=== PATIENT | male | born 1955 | race Caucasian/White ===

== ENCOUNTER 2018-08-06 09:30 | Outpatient (CLI) | payer BC, SELFPAY ==
[2018-08-06 11:20] LABS: HCT 43.8 % (40.0-50.0); HGB 14.3 g/dL (13.5-17.5); Mean Corp. HGB Concentration 32.6 g/dL (32.0-36.0); Mean Corpuscular Hemoglobin 29.9 pg (27.0-33.0); Mean Corpuscular Volume 91.6 fL (80-95); Mean Platelet Volume 9.8 fL (8.0-11.0); Platelet Count 218 x1000/uL (130-400); RBC 4.78 m/cumm (4.50-6.00); RBC Distribution Width 13.1 % (11.8-14.1); White Blood Cell Count 4.03 k/cumm (4.4-10.8)
[2018-08-06 11:59] LABS: Anion Gap 6.1 mmol/L (3-11); BUN 18 mg/dL (7-18); CO2 32.9 mmol/L (21.0-32.0); Calculated LDL 129; Chloride 106 mmol/L (98-107); Cholesterol 196 mg/dL (50-200); Glucose 99 mg/dL (70-100); HDL Cholesterol 59 mg/dL (40-60); Potassium 4.7 mmol/L (3.5-5.1); Sodium 145 mmol/L (136-145); Triglyceride 43 mg/dL (30-150)
[2018-08-09 10:50] LABS: PSA, Screening 1.3 ng/ml (0-4.5)
== END 2018-08-06 09:50 ==
PROVIDERS: PCP Family Medicine; Visit Provider Family Medicine
DX: Z00.00 Encounter for general adult medical examination without abnormal findings (principal); I10 Essential (primary) hypertension; Z12.5 Encounter for screening for malignant neoplasm of prostate
CPT/HCPCS: 36415; 80048; 80061; 83721; 84153; 85027

== ENCOUNTER 2019-11-19 13:03 | Outpatient (REF) | payer BC, SELFPAY ==
[2019-11-19 15:25] LABS: Anion Gap 4.9 mmol/L (3-11); BUN 18 mg/dL (7-18); CO2 30.1 mmol/L (21.0-32.0); CREATININE 1.12 mg/dL (0.70-1.30); Calcium 8.9 mg/dL (8.5-10.1); Chloride 105 mmol/L (98-107); Glucose 123 mg/dL (74-106); Potassium 4.5 mmol/L (3.5-5.1); Sodium 140 mmol/L (136-145)
== END 2019-11-19 13:23 ==
LOC: LBN 13:03
PROVIDERS: PCP Nurse Practitioner; Visit Provider Family Medicine
DX: G47.33 Obstructive sleep apnea (adult) (pediatric) (principal)
CPT/HCPCS: 80048

== ENCOUNTER 2019-11-21 18:07 | Outpatient (REF) | payer BC, SELFPAY ==
[2019-11-25 16:33] LABS: Misc Referral (VDH) See Comments
== END 2019-11-21 18:27 ==
LOC: LBN 18:07
PROVIDERS: PCP Nurse Practitioner; Visit Provider Nurse Practitioner Family
DX: R19.7 Diarrhea, unspecified (principal)
CPT/HCPCS: 87505; 87177

== ENCOUNTER 2019-12-11 18:00 | Emergency (ER) | payer BC, SELFPAY ==
--- NOTE | 2019-12-11 18:00 | DI.CT_ITS ---
EXAM: CT RENAL COLIC WO CLINICAL HISTORY: left flank pain TECHNIQUE: COMPARISON: No exams were available for comparison FINDINGS: CT examination of the abdomen and pelvis was performed without contrast administration.. Images obta ined through the lung bases are unremarkable. The liver appears normal with no evidence of a focal mass. Spleen is unremarkable in appearance.. Gallbladder and bile ducts are unremarkable. Pancreas is unremarkable in appearance. Adrenals appear normal bilaterally. Kidneys appear normal with no evidence of renal mass, hydronephro sis, or nephrolithiasis. The ureters are slightly prominent bilaterally. No ureteral calcification. Bladder has low volume u rine. Bladder wall appears thickened raising the possibility of chronic bladder outlet obstruction. There is some trabeculation of the urinary bladder wall.. Prostate is mildly enlarged.. There is no evidence of abdominal or pelvic adenopathy. Abdominal aorta is normal in diameter period . Appendix is normal. There is fat stranding adjacent to the descending sigmoid junction with mild ass ociated wall thickening of the colon. The findings are suggestive mild uncomplicated diverticulitis. Please correlate clinically. No significant abdominal wall hernia seen. Impression: No evidence of urinary tract obstruction. Probable chronic mild bladder outlet obstruction. Findings suggesting acute versus chronic sigmoid diverticulitis. RADIATION DOSE DELIVERED: 878.81mGy.cm Total DLP 878.81mGy.cm Total DLP DATA REPOSITORY: All CT scans at this facility are submitted to the National Radiology Data Registry (NRDR) Dose Index Registry (DIR) with the [employer] (A[employer]). RADIATION OPTIMIZATION: All CT scans at this facility use at least one of these dose optimization te chniques: automated exposure control; mA and/or kV adjustment per patient size (includes targeted exa ms where dose is matched to clinical indication); or iterative reconstruction.
[2019-12-11 18:07] VITALS: BP 155/99; PULSE 75; RESP 20; TEMP 37; O2SAT 99
--- NOTE | 2019-12-11 18:14 | ED.GENADUL_ITS ---
Discharge Plan Disposition Patient Disposition: HOME Condition: Stable Discharge Details Clinical Impression: Hydroureter, Diverticulitis Primary Care Provider: Calli Ordoñez ED Provider: Colin Amador Home Meds and New Rx's Prescriptions: New metronidazole [Flagyl] 500 mg tablet 500 mg PO Q8H Qty: 21 RF: 0 ciprofloxacin HCl 500 mg tablet 500 mg PO BID Qty: 14 RF: 0 Continued terbinafine HCl 1 % cream 1 applic TP BID Qty: 30 RF: 0 epinephrine [EpiPen 2-Vic] 0.3 MG/0.3 ML auto-injector 0.3 mg IM PRN Qty: 1 RF: 2 Discharge Instructions Instructions: Diverticulitis (ED) Additional Instructions: follow up with your primary care provider within 1-2 weeks and I also referred you to urology for the enlarged ureters seen on the cat scan if you feel more ill, have fevers or worsening pain return to the emergency department Referrals: Cristino Carbajal MD [ [facility] STAFF PHYSICIAN] - Medical Decision Making 64 yo male who denies chronic medical problems comes in with one day of pain locazlies to the left oblique region that is 2/10 and increases slightly with palpation no fevers, vomit, changes on bowel habits or urinary symptoms. NEver had pain like this before. No testicle tenderness or swelling. Has mild pain in left mid oblique no guarding or rebound and no cva tenderness. Could be muscle wall strain as was doing heavy lifting yesterday but given location will obtain ct to eval for possible kidney stone vs hernia, no pain out of proportion to suggest mesenteric ischemia labs unremarkable, ct shows mild diverticulitis and bilateral mild hydroureters and thick bladder wall, ua unremarkble. Urinating and emptying his bladder well. Will refer to urology as outpatient and start on cipro/flagyl. He has only mild pain and decines any pain medicine. will d/c home and return precautions given Differential Diagnosis Differential Diagnosis: kidney stone, hernia Imaging Data Radiologic Study: Attestation: I personally reviewed and interpreted this imaging study as follows: Imaging: CT Scan Radiologist's impression: IMPRESSION: Bilateral mild hydro ureters down to the pelvis. The bladder demonstrates thick wall. Prostate gland is enlarged. Does the patient have bladder outlet obstruction? In the left lower quadrant there is mild strandy inflammatory changes seen involving the junction of the descending colon and sigmoid colon. These changes are consistent with mild diverticulitis. No free fluid. Lab Data Lab results reviewed: Yes I reviewed the patient's lab results. HPI General Mode of arrival: ambulatory . Date/Time Provider Initiated Documentation: 12/11/19 18:01 . Limitations to Documentation: no limitations . Information obtained by: patient . History of Present Illness 64 year old M presents to the emergency department with the chief complaint of left oblique area pain, described as moderate, Patient started experiencing this day(s) (2) and it has been constant. No relieving factors improve symptom(s), No exacerbating factors reported . Patient notes no other symptoms.. Patient did receive the following treatments prior to arrival, none Related Data Home Medications Medication Instructions Recorded Confirmed epinephrine [EpiPen 2-Vic] 0.3 mg IM PRN #1 pack 07/09/17 12/11/19 terbinafine HCl 1 % topical cream 1 applic TP BID #30 gm 10/06/19 12/11/19 ciprofloxacin HCl 500 mg PO BID #14 tab 12/11/19 metronidazole [Flagyl] 500 mg PO Q8H #21 tab 12/11/19 Previous Rx's Medication Instructions Recorded epinephrine [EpiPen 2-Vic] 0.3 mg IM PRN #1 pack 07/09/17 terbinafine HCl 1 % topical cream 1 applic TP BID #30 gm 10/06/19 ciprofloxacin HCl 500 mg PO BID #14 tab 12/11/19 metronidazole [Flagyl] 500 mg PO Q8H #21 tab 12/11/19 Allergies Allergy/AdvReac Type Severity Reaction Status Date / Time bee venom protein (honey bee) Allergy Unknown Unverified 12/11/19 18:12 General Stated Complaint: Abd Prob DULCE: 3 Review of Systems All systems reviewed & are unremarkable except as noted in HPI and below Constitutional Constitutional: Denies chills, Denies fever(s) and Denies weakness ENT Ears, Nose, Mouth, and Throat: Denies change in voice Cardiovascular Cardiovascular: Denies chest pain and Denies dyspnea Respiratory Respiratory: Denies cough and Denies dyspnea Gastrointestinal Gastrointestinal: Denies nausea and Denies vomiting Genitourinary Genitourinary: Denies dysuria Musculoskeletal Musculoskeletal: Denies joint swelling Integumentary/Breasts Skin/Breast: Denies rash Neurologic Neurologic: Denies weakness [facility] Medical History Abdominal cramping Bursitis of right shoulder (08/16/15) Lateral epicondylitis of left elbow Left lumbar radiculopathy (05/04/15) Localized pruritus (07/09/17) hands and dorsum of feet Plantar fasciitis, bilateral (08/16/15) Pruritus ani Trigeminal neuralgia Trigger finger, right middle finger (12/21/14) Surgical History Status post vasectomy Vasectomy Family History Mother , 87 Pulmonary embolism Parkinsons Father , 99 Colon cancer Sister No problems noted. Brother Hyperlipidemia Maternal Grandfather TB (tuberculosis) Paternal Grandfather No problems noted. Maternal Grandmother No problems noted. Paternal Grandmother No problems noted. Sister No problems noted. Sister No problems noted. Brother Hypertension Son No problems noted. Daughter No problems noted. Daughter No problems noted. Social History Smoking/Tobacco Use Status: Never Alcohol Intake: current Alcohol Intake frequency: a few times a month Alcohol type: beer Drug use: Never Substance use type: does not use Caregiver/Support person: Yes Household members: spouse Housing: house Communication Needs: None Do you need help understanding health information?: Never Pets and animals: Yes Pets and animals: dog(s) Sexually active: Yes Do you think of yourself as: straight/heterosexual Current gender identity: male What is your relationship status?: How often do you talk on the phone with friends or family?: twice per week How often do you get together with friends or relatives?: once per week How often do you attend synagogue or taoist services?: 1-3 times per year Do you belong to any clubs or organized social groups?: no Panel score (0-1 are the most socially isolated patients): 2 What type of physical activity do you participate in: walking Duration: 60-90 minutes/day Frequency: 5-6 times per week Veronika/Catholic: No preference Special veronika needs: No Seatbelt use: always Helmet use: Yes Helmet use: always Drive intox or ride w/intox pile driver: No Do you feel safe at home: Yes Do you feel safe in your relationship?: Yes Exam Const General: no acute distress Orientation: alert HENMT Head: normal to inspection Ears: external ears normal General nose exam: external nose normal Mouth: moist mucous membranes Eyes General: appearance normal, both eyes and all related structures Neck Neck: normal visual inspection Resp Effort & Inspection: normal respiratory effort and able to speak in complete sentences Cardio Rate: regular rate GI Palpation: soft and not rigid Skin General skin exam: no rashes or lesions noted Neuro General: patient alert and patient oriented x3 Extrem General: normal to inspection Psych Mental Status: mental status grossly normal Course Vital Signs Vital signs: Vital Signs Temperature 37.0 C 12/11/19 18:07 Pulse 75 12/11/19 18:07 Respiratory Rate 20 12/11/19 18:07 Blood Pressure 155/99 H 12/11/19 18:07 Pulse Oximetry 99 12/11/19 18:07 Temperature 37.0 C 12/11/19 18:07 Temperature Source Skin 12/11/19 18:07 Pulse 75 12/11/19 18:07 Respiratory Rate 20 12/11/19 18:07 Respiratory Effort Non-Labored 12/11/19 18:12 Blood Pressure 155/99 H 12/11/19 18:07 Blood Pressure Position Sitting 12/11/19 18:07 Pulse Oximetry 99 12/11/19 18:07 Oxygen Delivery Method Room Air 12/11/19 18:07 Oxygen Flow Rate 0 12/11/19 18:07 Pain Level 2 12/11/19 18:07
[2019-12-11 18:20] LABS: Bilirubin Negative (Negative); Blood Negative (Negative); Clarity Clear (Clear); Glucose Negative (Negative); Ketones Negative (Negative); Leukocyte Esterase Negative (Negative); Nitrite Negative (Negative); Specific Gravity 1.025 (1.005-1.025); Urobilinogen 0.2 EU/dL (Up TO 0.2)
[2019-12-11 18:23] LABS: Abs Immature Grans 0.03 10^3/uL (0.0-0.06); Absolute Basophil Count 0.03 10^3/uL (0.0-0.2); Absolute Eosinophil Count 0.05 10^3/uL (0.0-0.7); Absolute Lymphocyte Count 1.04 10^3/uL (1.2-3.4); Absolute Monocyte Count 0.71 10^3/uL (0.1-0.8); Absolute Neutrophil Count 4.02 10^3/uL (1.2-6.7); Basophils % 0.5; Eosinophils % 0.9; HCT 47.3 % (40.0-50.0); HGB 15.5 g/dL (13.5-17.5); Immature Grans % 0.5; Lymphocytes % 17.7; MCH 29.9 pg (27.0-33.0); MCHC 32.8 % (32.0-36.0); MCV 91.3 fL (80-95); MPV 9.2 fL (8.0-11.0); Monocytes % 12.1; Neutrophils % 68.3; Nucleated RBC 0 %; Platelet Count 192 10^3/uL (130-400); RBC 5.18 10^6/uL (4.36-5.78); RDW 12.1 % (11.8-14.1); RDW-SD 40.5 fL; WBC 5.88 10^3/uL (4.4-10.8)
[2019-12-11 18:38] LABS: Bilirubin, Direct 0.12 mg/dL (0.00-0.20)
[2019-12-11 18:42] LABS: ALT 25 U/L (16-63); AST 20 U/L (15-37); Albumin 4.4 g/dL (3.4-5.0); Alkaline Phosphatase 85 U/L (46-116); Anion Gap 4.8 mmol/L (3-11); BUN 17 mg/dL (7-18); Bilirubin, Total 0.5 mg/dL (0.2-1.0); CO2 31.2 mmol/L (21.0-32.0); CREATININE 1.11 mg/dL (0.70-1.30); Calcium 9.5 mg/dL (8.5-10.1); Chloride 103 mmol/L (98-107); Glucose 91 mg/dL (74-106); Lipase 134 U/L (73-393); Magnesium 2.3 mg/dL (1.8-2.4); Potassium 4.1 mmol/L (3.5-5.1); Sodium 139 mmol/L (136-145); Total Protein 8.4 g/dL (6.4-8.2)
--- NOTE | 2019-12-11 18:50 | DI.VRAD_ITS ---
PROCEDURE INFORMATION: Exam: CT Abdomen And Pelvis Without Contrast Exam date and time: 12/11/2019 6:32 PM Age: 64 years old Clinical indication: Abdominal pain; Prior surgery; Surgery date: 6+ months; Surgery type: Vasectomy; Patient HX: Left sided abdominal /flank pain TECHNIQUE: Imaging protocol: Computed tomography of the abdomen and pelvis without contrast. Radiation optimization: All CT scans at this facility use at least one of these dose optimization techniques: automated exposure control; mA and/or kV adjustment per patient size (includes targeted exams where dose is matched to clinical indication); or iterative reconstruction. COMPARISON: No relevant prior studies available. FINDINGS: Lungs: The lung bases demonstrate some subsegmental atelectasis. Liver: Normal. No mass. Gallbladder and bile ducts: Gallbladder is contracted. Pancreas: Normal. No ductal dilation. Spleen: Normal. No splenomegaly. Adrenals: Normal. No mass. Kidneys and ureters: The demonstrate no hydronephrosis however there is bilateral hydroureter proximally both ureters are followed down to the bladder. Stomach and bowel: Large amount of stool is seen throughout the entire colon from the cecum to the rectum. There is a small area of descending colon at its junction with the sigmoid colon which has mild strandy inflammatory changes around this loop of bowel with scattered diverticula seen. Appendix: No evidence of appendicitis. Intraperitoneal space: Unremarkable. No free air. No significant fluid collection. Vasculature: Unremarkable. No abdominal aortic aneurysm. Lymph nodes: Unremarkable. No enlarged lymph nodes. Urinary bladder: The bladder demonstrates some bladder wall thickening and a cystocele posteriorly on the left. Reproductive: In the pelvis the prostate is enlarged. Bones/joints: Sagittal images demonstrates mild discogenic degenerative changes in the lower lumbar spine. Soft tissues: Patient has a small umbilical hernia containing mesenteric fat at this time. IMPRESSION: Bilateral mild hydro ureters down to the pelvis. The bladder demonstrates thick wall. Prostate gland is enlarged. Does the patient have bladder outlet obstruction? In the left lower quadrant there is mild strandy inflammatory changes seen involving the junction of the descending colon and sigmoid colon. These changes are consistent with mild diverticulitis. No free fluid. Dictated and Authenticated by: Damaris Hidalgo MD. Ordering:MARIO Shaw MD
[2019-12-11 18:52] LABS: PTT Activated 25.6 sec (21.0-31.4); Prothrombin Time 9.8 sec (9.3-11.0)
[2019-12-11 19:28] VITALS: BP 134/72; PULSE 70; RESP 18; TEMP 37.1; O2SAT 99
--- NOTE | 2019-12-11 19:33 | NUR.NOTE ---
Nursing Note: referal sent to urology 12/11/19
[2019-12-11] MEDS: metroNIDAZOLE 500 MG TAB PO (19:44)
[2019-12-11] MEDS: Ciprofloxacin 500 MG TAB PO (19:44)
== END 2019-12-11 19:45 | disposition home or self-care (01) ==
PROVIDERS: Emergency Provider Emergency Medicine; PCP Nurse Practitioner
DX: N13.4 Hydroureter (principal); K57.32 Diverticulitis of large intestine without perforation or abscess without bleeding
CPT/HCPCS: 80053; 83690; 99284; 74176; 81003; 82248; 83735; 85025; 85610; 85730

== ENCOUNTER 2020-06-10 08:37 | Outpatient (REF) | payer BC, SELFPAY ==
[2020-06-11 11:46] LABS: Campylobacter PCR Negative (Negative); Salmonella PCR Negative (Negative); Shiga Toxin PCR Negative (Negative); Shigella/Enteroinvasive Ecoli Negative (Negative)
== END 2020-06-10 08:38 | disposition home or self-care (01) ==
LOC: LBN 08:37
PROVIDERS: PCP Nurse Practitioner; Visit Provider Nurse Practitioner Family
DX: R19.7 Diarrhea, unspecified (principal)
CPT/HCPCS: 87505

== ENCOUNTER 2021-08-08 10:32 | Outpatient (CLI) | payer BC, SELFPAY ==
[2021-08-08 10:53] LABS: Potassium 4.1 mmol/L (3.5-5.1)
== END 2021-08-08 10:33 | disposition home or self-care (01) ==
LOC: LBO 10:33
PROVIDERS: PCP Nurse Practitioner; Visit Provider Nurse Practitioner
DX: I10 Essential (primary) hypertension (principal)
CPT/HCPCS: 36415; 82565; 84132

== ENCOUNTER 2022-11-19 14:11 | Outpatient (REF) | payer BC, SELFPAY ==
[2022-11-19 15:35] LABS: C Diff PCR Negative (Negative)
[2022-11-20 10:57] LABS: Campylobacter PCR Negative (Negative); Salmonella PCR Negative (Negative); Shiga Toxin PCR Negative (Negative); Shigella/Enteroinvasive Ecoli Negative (Negative)
== END 2022-11-19 14:12 | disposition home or self-care (01) ==
LOC: LBN 14:11
PROVIDERS: PCP Nurse Practitioner Family; Visit Provider Nurse Practitioner
DX: R19.7 Diarrhea, unspecified (principal)
CPT/HCPCS: 87329; 87493; 87505

== ENCOUNTER 2022-12-20 10:10 | Emergency (ER) | payer BC, SELFPAY ==
[2022-12-20] VITALS (22 sets, daily range): BP systolic 118–169; BP diastolic 71–99; PULSE 68–147; RESP 5–24; TEMP 36.6; O2SAT 95–97
--- NOTE | 2022-12-20 10:15 | RT.EKG_ITS ---
APPROVED REPORT Exam: Resting ECG Reason for Exam: Tachycardia Patient Location: E HR:143 bpm ECG Measurements Heart Rate 143 AXIS NH 108 P 240 QRSd 160 QRS -15 QT 380 T 268 QTc 586 Conclusion Sinus tachycardia.. IVCD, consider RBBB...QRSd>120mS, terminal axis(90,270) Abnormal T, consider ischemia, inferior leads...T <-0.20mV, II III aVF
--- NOTE | 2022-12-20 10:30 | RT.EKG_ITS ---
APPROVED REPORT Exam: Resting ECG Reason for Exam: tachycardia Patient Location: E HR:80 bpm ECG Measurements Heart Rate 80 AXIS LA 160 P 31 QRSd 91 QRS 12 QT 371 T 57 QTc 429 Conclusion Sinus rhythm...normal P axis, V-rate 60- [address] segment or T wave abnormalities to suggest occlusive [place]
--- NOTE | 2022-12-20 10:36 | NUR.NOTE ---
Accessed Pt chart in [facility] to obtain an older EKG to compare to the EKG now.
[2022-12-20 10:38] LABS: Abs Immature Grans 0.02 10^3/uL (0.0-0.06); Absolute Basophil Count 0.02 10^3/uL (0.0-0.2); Absolute Eosinophil Count 0.03 10^3/uL (0.0-0.7); Absolute Lymphocyte Count 0.76 10^3/uL (1.2-3.4); Absolute Monocyte Count 0.55 10^3/uL (0.1-0.8); Absolute Neutrophil Count 2.82 10^3/uL (1.2-6.7); Basophils % 0.5; Eosinophils % 0.7; HCT 46.1 % (40.0-50.0); HGB 15.3 g/dL (13.5-17.5); Immature Grans % 0.5; Lymphocytes % 18.1; MCH 30.2 pg (27.0-33.0); MCHC 33.2 % (32.0-36.0); MCV 91 fL (80-95); MPV 9.2 fL (8.0-11.0); Monocytes % 13.1; Neutrophils % 67.1; Platelet Count 191 10^3/uL (130-400); RBC 5.06 10^6/uL (4.36-5.78); RDW-SD 40.1 fL
[2022-12-20 11:03] LABS: ALT 30 U/L (16-63); AST 17 U/L (15-37); Albumin 3.8 g/dL (3.4-5.0); Alkaline Phosphatase 59 U/L (46-116); Anion Gap 6.9 mmol/L (3-11); BUN 23 mg/dL (7-18); Bilirubin, Total 0.4 mg/dL (0.2-1.0); CO2 30.1 mmol/L (21.0-32.0); Calcium 9.7 mg/dL (8.5-10.1); Chloride 103 mmol/L (98-107); Estimated GFR 81.47 (mL/min/1.73m2); Glucose 100 mg/dL (74-106); Potassium 4.3 mmol/L (3.5-5.1); Sodium 140 mmol/L (136-145); TSH (W/Ref FT4) 3.11 uIU/mL (0.36-3.74); Total Protein 8.1 g/dL (6.4-8.2); Troponin I < 50 ng/L (<or=60)
--- NOTE | 2022-12-20 11:45 | W.ED.GENAD ---
Discharge Plan Disposition Patient Disposition: Home Discharge Details Clinical Impression: Atrial tachycardia Primary Care Provider: Jose Wayne ED Provider: Osiel Lee Home Meds and New Rx's Prescriptions: New metoprolol succinate 25 mg tablet extended release 24 hr 12.5 mg PO DAILY Qty: 30 1RF Continued rosuvastatin 5 mg tablet 5 mg PO DAILY aspirin 81 mg tablet,delayed release (DR/EC) 81 mg PO DAILY cholestyramine (with sugar) 4 gram powder 1 pwd PO QACHS Qty: 378 0RF Rx Instructions: no meds 1 hr before/4-6 hr after dose loperamide [Imodium A-D] 2 mg tablet 2 mg PO Q4H PRN (Reason: loose stool) Qty: 60 0RF Rx Instructions: administer after each loose stool until symptoms controlled; do not exceed 8 mg per 24 hrs epinephrine [EpiPen 2-Vic] 0.3 MG/0.3 ML auto-injector 0.3 mg IM PRN Qty: 1 2RF Rx Instructions: May fill for generic budesonide 9 mg tablet,delayed and ext.release 9 mg PO DAILY Qty: 60 0RF Rx Instructions: 1 tab po qd x 8 weeks budesonide 6 mg capsule, extended release 6 mg PO DAILY Qty: 90 0RF lisinopril 5 mg tablet 5 mg PO DAILY Qty: 90 1RF Discharge Instructions Instructions: Atrial Tachycardia (ED), Valsalva Maneuver (ED) Additional Instructions: Please continue to monitor your symptoms and return to the emergency department for any new or significant worsening of your condition. You may perform the Valsalva/modified Valsalva maneuvers along with cold rags on your face to see if this stops any reoccurrence of your symptoms. Take the new medication daily and monitor your blood pressure and heart rate while on this medication. Please ensure that your systolic blood pressure is above 100 and your heart rate is above 60 before taking this new medication. Referrals: [facility] [Outside] (Please call your take off worker and follow-up as discussed) Medical Decision Making Patient presenting to the emergency department for chief complaint of tachycardia. Patient reports just prior to arrival he was putting some stuff away in the kitchen and bent over when he stood up he felt his heart rate rapidly increase and he got a little bit of lightheadedness. Patient denies any pain or discomfort, states that this is the third time that is happened within the last year and has seen [facility] cardiology for this. Patient does have significant cardiac history of pericarditis approximately 3 years ago after having COVID in which he was prescribed atorvastatin aspirin and lisinopril. He also was supposed to be taking colchicine but he had stopped that for a while and did restart it the last couple days. Patient denies any other significant cardiac history. Physical exam is positive for significant tachycardia but patient is ANO x3, no altered mental status, stable and even slightly elevated blood pressure and all other vitals are within normal range including patient being afebrile. Stat EKG was ordered along with cardiac standard blood work. Please see physician interpretation for full interpretation of EKG but upon my review patient appears to be in a sinus versus atrial tachycardia with rate of 143 some findings to suggest possible demand ischemia but difficult to fully determine due to rate. We will continue to monitor. Patient does state the other 2 episodes self resolved so we did attempt modified Valsalva maneuver. We perform this twice with little changes noted at that time. After leaving the room for approximately 10 minutes was monitoring patient and he self converted back to sinus rhythm which we performed another EKG. Please see physician interpretation of that EKG as well but patient now appears to be in sinus rhythm, rate of 80, no findings to suggest acute STEMI and otherwise appears to be a normal rhythm. Labs reviewed and CBC CMP are noncontributory, nondetected troponin, TSH within normal range. I did speak with [facility] cardiology on-call who recommended patient be placed on a low-dose beta-feroz and to follow-up with their clinic. Discussed these recommendations with patient and significant other who were in agreement. They were encouraged to perform Valsalva maneuvers at home if the episodes occur again but if they are unsuccessful to come immediately to the emergency department. Patient put on extended release metoprolol just at 12.5 mg given his blood pressure of 120s over 70s. After discussion of diagnosis and plan of care patient has no further needs, questions, or concerns and states clear understanding to return to the emergency department for any worsening symptoms. This documentation was generated using [employer] system, please disregard any oddities of phrase or misspellings. Lab Data Lab results reviewed: Yes I reviewed the patient's lab results. HPI General Mode of arrival: ambulatory. Date/Time Provider Initiated Documentation: 12/20/22 10:15. Limitations to Documentation: no limitations. Information obtained by: patient, family and RN notes reviewed. History of Present Illness 67 year old M presents to the emergency department with the chief complaint of Tachycardia, described as moderate, severe and similar to prior episodes, Patient started experiencing this minute(s) (40) and it has been constant. No relieving factors improve symptom(s), No exacerbating factors reported . Patient notes no other symptoms.. Patient did receive the following treatments prior to arrival, none Related Data Home Medications Medication Instructions Recorded Confirmed epinephrine 0.3 mg/0.3 mL 0.3 mg (0.3 mL) IM PRN ##1 07/09/17 06/13/22 injection, auto-injector (EpiPen 2-Vic) loperamide 2 mg tablet (Imodium 2 mg PO Q4H PRN loose stool #60 06/04/20 06/13/22 A-D) tabs rosuvastatin 5 mg tablet 5 mg PO DAILY 01/28/22 06/13/22 aspirin 81 mg tablet,delayed 81 mg PO DAILY 06/13/22 release cholestyramine (with sugar) 4 gram 1 pwd PO QACHS #378 grams 06/13/22 06/13/22 oral powder budesonide 9 mg tablet,delayed and 9 mg PO DAILY #60 tabs 06/25/22 extended release budesonide 6 mg capsule,extended 6 mg PO DAILY #90 caps 08/29/22 release lisinopril 5 mg tablet 5 mg PO DAILY #90 tabs 08/29/22 metoprolol succinate 25 mg 12.5 mg (1/2 x 25 mg) PO DAILY #30 12/20/22 tablet,extended release 24 hr tabs Previous Rx's Medication Instructions Recorded epinephrine 0.3 mg/0.3 mL 0.3 mg (0.3 mL) IM PRN ##1 07/09/17 injection, auto-injector (EpiPen 2-Vic) loperamide 2 mg tablet (Imodium 2 mg PO Q4H PRN loose stool #60 06/04/20 A-D) tabs cholestyramine (with sugar) 4 gram 1 pwd PO QACHS #378 grams 06/13/22 oral powder budesonide 9 mg tablet,delayed and 9 mg PO DAILY #60 tabs 06/25/22 extended release budesonide 6 mg capsule,extended 6 mg PO DAILY #90 caps 08/29/22 release lisinopril 5 mg tablet 5 mg PO DAILY #90 tabs 08/29/22 metoprolol succinate 25 mg 12.5 mg (1/2 x 25 mg) PO DAILY #30 12/20/22 tablet,extended release 24 hr tabs Allergies Allergy/AdvReac Type Severity Reaction Status Date / Time bee venom protein (honey bee) Allergy Unknown 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 06/13/22 09:36 lisinopril AdvReac Intermediate Other (See Uncoded 06/13/22 09:43 Comment) General Stated Complaint: Palpitatns DULCE: 3 Review of Systems Constitutional Constitutional: Denies chills, Denies fever(s) and Denies headache(s) ENT Ears, Nose, Mouth, and Throat: Denies dizziness and Denies headache(s) Cardiovascular Cardiovascular: Reports as per HPI, Denies chest pain, Reports rapid heart rate, Reports lightheadedness, Reports palpitations and Denies dyspnea Respiratory Respiratory: Denies cough and Denies dyspnea Neurologic Neurologic: Denies dizziness and Denies headache(s) Endocrine Endocrine: Reports palpitations PFSH All Active Problems Atrial tachycardia (Acute) Lesion of skin of nose (Acute) left side Hypertension (Chronic) Hydroureter (Acute) Diarrhea (Acute) 07/2020- microscopic colitis- seeing [facility] Neck strain (Chronic) stretching helps Obstructive sleep apnea syndrome (Chronic 07/30/16) Medical History COVID-19 06/26/21 Sensation of foreign body in throat Elevated TSH Normal T4 Lateral epicondylitis of left elbow Abdominal cramping Bursitis of right shoulder (08/16/15) Left lumbar radiculopathy (05/04/15) Lichen simplex chronicus Localized pruritus (07/09/17) hands and dorsum of feet Plantar fasciitis, bilateral (08/16/15) Pruritus ani Trigeminal neuralgia Trigger finger, right middle finger (12/21/14) Surgical History Status post vasectomy Vasectomy Family History Mother , 87 Pulmonary embolism Parkinsons Father , 99 Colon cancer Sister No problems noted. Brother Hyperlipidemia Maternal Grandfather TB (tuberculosis) Paternal Grandfather No problems noted. Maternal Grandmother No problems noted. Paternal Grandmother No problems noted. Sister No problems noted. Sister No problems noted. Brother Hypertension Son No problems noted. Daughter No problems noted. Daughter No problems noted. Social History Smoking/Tobacco Use Status: Never Second Hand Exposure: No Smoking risk assessment performed?: Yes Alcohol Intake: current Alcohol Intake frequency: a few times a month Alcohol type: beer Drug use: Never Substance use type: does not use Caregiver/Support person: Yes Household members: spouse Housing: house Communication Needs: None Do you need help understanding health information?: Never Pets and animals: Yes Pets and animals: dog(s) Sexually active: Yes Do you think of yourself as: straight/heterosexual Current gender identity: male What is your relationship status?: How often do you talk on the phone with friends or family?: twice per week How often do you get together with friends or relatives?: once per week How often do you attend buddhism or latter-day services?: 1-3 times per year Do you belong to any clubs or organized social groups?: no Panel score (0-1 are the most socially isolated patients): 2 What type of physical activity do you participate in: walking Duration: 60-90 minutes/day Frequency: 5-6 times per week Veronika/Christian: No preference Special veronika needs: No Seatbelt use: always Helmet use: Yes Helmet use: always Drive intox or ride w/intox chuck wagon driver: No Do you feel safe at home: Yes Do you feel safe in your relationship?: Yes Exam Const General: cooperative, healthy appearing, comfortable, no acute distress, not diaphoretic and not ill appearing Nutritional Appearance: average body habitus Orientation: alert, awake and oriented x3 Limitations: mental status not altered Neck Neck: normal visual inspection, full ROM, trachea midline, supple and no anterior neck swelling Carotids: normal carotid upstroke and no bruits Chest Chest: normal inspection of the chest Resp Effort & Inspection: normal respiratory effort and able to speak in complete sentences Auscultation: clear to auscultation bilaterally Cardio Jugular venous pressure: no JVD Palpation: normal PMI Rate: tachycardic Rhythm: regular rhythm Heart Sounds: S1 normal and S2 normal Pulses: radial pulses present bilaterally 2+ and dorsalis pedis present GI Inspection: normal to inspection Palpation: soft, no aortic enlargement, no pulsatile masses and nontender Auscultation: normal bowel sounds Skin General skin exam: no rashes or lesions noted Neuro General: patient alert, patient awake, patient oriented x3, tone normal and moves all extremities Course Vital Signs Vital signs: Vital Signs Temperature 36.6 C 12/20/22 10:18 Pulse 145 H 12/20/22 10:18 Blood Pressure 169/90 H 12/20/22 10:18 Pulse Oximetry 97 12/20/22 10:18 Temperature 36.6 C 12/20/22 10:18 Temperature Source Oral 12/20/22 10:18 Pulse 140 H 12/20/22 10:30 Pulse 147 H 12/20/22 10:40 Respiratory Rate 20 12/20/22 10:40 Respiratory Effort Normal 12/20/22 10:23 Blood Pressure 139/99 H 12/20/22 10:30 Blood Pressure Mean 112 12/20/22 10:30 Blood Pressure Position Sitting 12/20/22 10:18 Pulse Oximetry 96 12/20/22 10:40 Oxygen Delivery Method Room Air 12/20/22 10:18 Oxygen Flow Rate 0 12/20/22 10:18 Pain Level 0 12/20/22 10:18 Lab/Test Results Lab/Test Results: Laboratory Tests Range/Units 12/20/22 10:23 WBC (4.4-10.8) 10^3/uL 4.20 L RBC (4.36-5.78) 10^6/uL 5.06 Hgb (13.5-17.5) g/dL 15.3 Hct (40.0-50.0) % 46.1 MCV (80-95) fL 91 MCH (27.0-33.0) pg 30.2 MCHC (32.0-36.0) % 33.2 RDW (11.8-14.1) % 12.0 Plt Count (130-400) 10^3/uL 191 MPV (8.0-11.0) fL 9.2 Immature Gran % 0.5 Neutrophils % 67.1 Lymphocytes % 18.1 Monocytes % 13.1 Eosinophils % 0.7 Basophils % 0.5 Nucleated RBC % (0.0-0.3) % 0.0 Absolute Neutrophils (1.2-6.7) 10^3/uL 2.82 Absolute Lymphocytes (1.2-3.4) 10^3/uL 0.76 L Absolute Monocytes (0.1-0.8) 10^3/uL 0.55 Absolute Eosinophils (0.0-0.7) 10^3/uL 0.03 Absolute Basophils (0.0-0.2) 10^3/uL 0.02 Sodium (136-145) mmol/L 140 Potassium (3.5-5.1) mmol/L 4.3 Chloride (98-107) mmol/L 103 Carbon Dioxide (21.0-32.0) mmol/L 30.1 Anion Gap (3-11) mmol/L 6.9 BUN (7-18) mg/dL 23 H Creatinine (0.70-1.30) mg/dL 1.0 Est GFR (CKD-EPI 2020) (mL/min/1.73m2) 81.47 Glucose (74-106) mg/dL 100 Calcium (8.5-10.1) mg/dL 9.7 Magnesium (1.8-2.4) mg/dL 2.0 Total Bilirubin (0.2-1.0) mg/dL 0.4 AST (15-37) U/L 17 ALT (16-63) U/L 30 Alkaline Phosphatase (46-116) U/L 59 Troponin I (<or=60) ng/L < 50 Total Protein (6.4-8.2) g/dL 8.1 Albumin (3.4-5.0) g/dL 3.8 TSH (0.36-3.74) uIU/mL 3.11 Critical Care Time Critical Care Time Critical Care Time: Yes Total Critical Care Time: 30 Attestation: Due to SVT/atrial tachycardia with high probability of imminent or life threatening deterioration in the patient?s condition without intervention and treatment. Time spent documenting, reviewing labs and radiographs, monitoring titration/ Vital signs, and speaking with [facility] take off worker.
[2022-12-20] MEDS: Metoprolol CR 25 MG TABCR 12.5 MG PO (12:23)
== END 2022-12-20 12:31 | disposition home or self-care (01) ==
PROVIDERS: Emergency Provider Nurse Practitioner Family; PCP Nurse Practitioner Family
DX: I47.11 Inappropriate sinus tachycardia, so stated (principal)
CPT/HCPCS: 80053; 93005; 99291; 83735; 84443; 84484; 85025; 93010

== ENCOUNTER 2022-12-29 11:02 | Emergency (ER) | payer BC, SELFPAY ==
--- NOTE | 2022-12-29 10:45 | RT.EKG_ITS ---
APPROVED REPORT Exam: Resting ECG Reason for Exam: PALPITATIONS, SVT Patient Location: E HR:85 bpm ECG Measurements Heart Rate 85 AXIS NJ 156 P 40 QRSd 98 QRS 16 QT 354 T 64 QTc 422 Conclusion Sinus rhythm..V-rate 60- [address]. [address] segment or T wave abnormalities to suggest occlusive GA
[2022-12-29 11:04] VITALS: BP 139/83; PULSE 88; RESP 18; O2SAT 98
--- NOTE | 2022-12-29 11:12 | W.ED.GENAD ---
Discharge Plan Disposition Patient Disposition: Home Condition: Good Discharge Details Clinical Impression: Tachycardia Primary Care Provider: Jose Wayne ED Provider: Karin Mccartney Home Meds and New Rx's Prescriptions: New metoprolol succinate 25 mg tablet extended release 24 hr 25 mg PO DAILY Qty: 60 0RF Continued rosuvastatin 5 mg tablet 5 mg PO DAILY aspirin 81 mg tablet,delayed release (DR/EC) 81 mg PO DAILY loperamide [Imodium A-D] 2 mg tablet 2 mg PO Q4H PRN (Reason: loose stool) Qty: 60 0RF Rx Instructions: administer after each loose stool until symptoms controlled; do not exceed 8 mg per 24 hrs epinephrine [EpiPen 2-Vic] 0.3 MG/0.3 ML auto-injector 0.3 mg IM PRN Qty: 1 2RF Rx Instructions: May fill for generic budesonide 9 mg tablet,delayed and ext.release 9 mg PO DAILY Qty: 60 0RF Rx Instructions: 1 tab po qd x 8 weeks budesonide 6 mg capsule, extended release 6 mg PO DAILY Qty: 90 0RF lisinopril 5 mg tablet 5 mg PO DAILY Qty: 90 1RF Discontinued metoprolol succinate 25 mg tablet extended release 24 hr 12.5 mg PO DAILY Qty: 30 1RF Discharge Instructions Instructions: Valsalva Maneuver (ED), Tachycardia (ED) Additional Instructions: [facility] cardiology will try to move up your appointment. In the meantime, they would like you to increase your metoprolol (start by taking the full 12.5 you were prescribed) and to follow up with your PCP until you are able to see them. Please call your primary care doctor tomorrow to schedule an appointment to see them this week. Return to the emergency department for new or worsening symptoms including if your chest pressure returns, your heart is beating very fast, you feel like you are going to pass out, or if you have any other concerns. Referrals: Jose Wayne, SALES TECHNICIAN [Primary Care Provider] - Medical Decision Making 67yo M with HTN, prior episodes of transient tachycardia, presenting via EMS for tachycardia. History from patient, EMS, and [facility] record review. Recurrent episodes of chest pressure and tachycardia, today lasted > 40 minutes. EMS was called, they report regular narrow complex tachycardia with rate in 160's, normotensive, he was given 6mg of adenosine and converted into sinus rhythm with rate in 80's. Chest pressure resolved after he converted. Was started on metoprolol 12.5mg, missed his dose yesterday. Scheduled to see [facility] in February. Vital signs reassuring on arrival, HR in 80's, normotensive, no chest discomfort. Well appearing with a normal physical exam. EKG NSR, rate in 80's, appropriate intervals, no ST segment or T wave abnormalities to suggest occlusive SC. Labs reviewed as below, CBC & CMP reassuring, troponin negative x 2, TSH elevated with normal T4, dimer elevated. CT for PE independently reviewed, no large pulmonary embolism on my view, agree with radiology read below. Patient advised of incidental pericardial effusion. Discussed with Dr. Leal [facility] cardiology who advised increasing metoprolol to 25mg daily, PCP followup, will try to expedite their seeing the patient sooner. On reassessment he remains well appearing with reassuring vital signs, no further tachycardia or chest discomfort. States he has actually been taking 1/4 tab of his metop (so 6.25mg); advised increasing to initially prescribed 12.5 and following up with his PCP for possible increase to 25mg. Discharged home; discharge instructions including return precautions were reviewed with patient who verbalized understanding. All questions were answered and they are in full agreement with the plan. Medical Records Medical records reviewed: Yes I reviewed the patient's medical records. Imaging Data Radiologic Study: Imaging: CT Scan Radiologist's impression: IMPRESSION: No evidence of pulmonary embolism. A tiny pericardial effusion. Lab Data Lab results reviewed: Yes I reviewed the patient's lab results. Labs: Laboratory Tests Range/Units 12/29/22 12/29/22 12/29/22 11:13 11:13 11:13 WBC (4.4-10.8) 10^3/uL 4.74 RBC (4.36-5.78) 10^6/uL 4.85 Hgb (13.5-17.5) g/dL 14.6 Hct (40.0-50.0) % 43.7 MCV (80-95) fL 90 MCH (27.0-33.0) pg 30.1 MCHC (32.0-36.0) % 33.4 RDW (11.8-14.1) % 11.5 L Plt Count (130-400) 10^3/uL 226 MPV (8.0-11.0) fL 8.5 Immature Gran % 0.6 Neutrophils % 74.6 Lymphocytes % 13.7 Monocytes % 10.1 Eosinophils % 0.6 Basophils % 0.4 Nucleated RBC % (0.0-0.3) % 0.0 Absolute Neutrophils (1.2-6.7) 10^3/uL 3.53 Absolute Lymphocytes (1.2-3.4) 10^3/uL 0.65 L Absolute Monocytes (0.1-0.8) 10^3/uL 0.48 Absolute Eosinophils (0.0-0.7) 10^3/uL 0.03 Absolute Basophils (0.0-0.2) 10^3/uL 0.02 D-Dimer (<500) ng/mlFEU 803 H Sodium (136-145) mmol/L 141 Potassium (3.5-5.1) mmol/L 4.3 Chloride (98-107) mmol/L 105 Carbon Dioxide (21.0-32.0) mmol/L 32.0 Anion Gap (3-11) mmol/L 4.0 BUN (7-18) mg/dL 16 Creatinine (0.70-1.30) mg/dL 1.2 Est GFR (CKD-EPI 2020) (mL/min/1.73m2) 65.46 Glucose (74-106) mg/dL 103 Calcium (8.5-10.1) mg/dL 9.4 Magnesium (1.8-2.4) mg/dL 2.4 Total Bilirubin (0.2-1.0) mg/dL 0.4 AST (15-37) U/L 15 ALT (16-63) U/L 24 Alkaline Phosphatase (46-116) U/L 60 Troponin I (<or=60) ng/L < 50 Cancelled Total Protein (6.4-8.2) g/dL 7.6 Albumin (3.4-5.0) g/dL 3.4 TSH (0.36-3.74) uIU/mL 3.79 H Cancelled Free T4 (0.76-1.46) ng/dL 0.95 Range/Units 12/29/22 14:03 WBC (4.4-10.8) 10^3/uL RBC (4.36-5.78) 10^6/uL Hgb (13.5-17.5) g/dL Hct (40.0-50.0) % MCV (80-95) fL MCH (27.0-33.0) pg MCHC (32.0-36.0) % RDW (11.8-14.1) % Plt Count (130-400) 10^3/uL MPV (8.0-11.0) fL Immature Gran % Neutrophils % Lymphocytes % Monocytes % Eosinophils % Basophils % Nucleated RBC % (0.0-0.3) % Absolute Neutrophils (1.2-6.7) 10^3/uL Absolute Lymphocytes (1.2-3.4) 10^3/uL Absolute Monocytes (0.1-0.8) 10^3/uL Absolute Eosinophils (0.0-0.7) 10^3/uL Absolute Basophils (0.0-0.2) 10^3/uL D-Dimer (<500) ng/mlFEU Sodium (136-145) mmol/L Potassium (3.5-5.1) mmol/L Chloride (98-107) mmol/L Carbon Dioxide (21.0-32.0) mmol/L Anion Gap (3-11) mmol/L BUN (7-18) mg/dL Creatinine (0.70-1.30) mg/dL Est GFR (CKD-EPI 2020) (mL/min/1.73m2) Glucose (74-106) mg/dL Calcium (8.5-10.1) mg/dL Magnesium (1.8-2.4) mg/dL Total Bilirubin (0.2-1.0) mg/dL AST (15-37) U/L ALT (16-63) U/L Alkaline Phosphatase (46-116) U/L Troponin I (<or=60) ng/L < 50 Total Protein (6.4-8.2) g/dL Albumin (3.4-5.0) g/dL TSH (0.36-3.74) uIU/mL Free T4 (0.76-1.46) ng/dL HPI General Mode of arrival: EMS. Date/Time Provider Initiated Documentation: 12/29/22 11:12. Limitations to Documentation: no limitations. Information obtained by: patient, EMS and old records reviewed. HPI Narrative: 67yo M with HTN, prior episodes of transient tachycardia, presenting via EMS for tachycardia. Has episodes of chest pressure with rapid heart rate lasting up to 40 minutes a time; these typically break on their own but today persisted > 40 minutes. EMS was called, they report regular narrow complex tachycardia with rate in 160's, normotensive, he was given 6mg of adenosine and converted into sinus rhythm with rate in 80's. Chest pressure resolved after he converted. No shortness of breath at any point, did feel somewhat lightheaded when his heart rate was high. Has been seen in this ED for similar symptoms in the past, had a monitor for a time which did not capture any events, is scheduled to see [facility] cardiology in February. He was started on 12.5mg of metoprolol; did not take yesterday and has not taken yet today. He is otherwise in his usual state of health with no fevers, chills, rash, nausea, vomiting, diarrhea, abdominal pain, LE edema, recent illness, or other concerns. Related Data Home Medications Medication Instructions Recorded Confirmed epinephrine 0.3 mg/0.3 mL 0.3 mg (0.3 mL) IM PRN ##1 07/09/17 12/29/22 injection, auto-injector (EpiPen 2-Vic) loperamide 2 mg tablet (Imodium 2 mg PO Q4H PRN loose stool #60 06/04/20 12/29/22 A-D) tabs rosuvastatin 5 mg tablet 5 mg PO DAILY 01/28/22 12/29/22 aspirin 81 mg tablet,delayed 81 mg PO DAILY 06/13/22 12/29/22 release budesonide 9 mg tablet,delayed and 9 mg PO DAILY #60 tabs 06/25/22 12/29/22 extended release budesonide 6 mg capsule,extended 6 mg PO DAILY #90 caps 08/29/22 12/29/22 release lisinopril 5 mg tablet 5 mg PO DAILY #90 tabs 08/29/22 12/29/22 metoprolol succinate 25 mg 25 mg PO DAILY #60 tabs 12/29/22 tablet,extended release 24 hr Previous Rx's Medication Instructions Recorded epinephrine 0.3 mg/0.3 mL 0.3 mg (0.3 mL) IM PRN ##1 07/09/17 injection, auto-injector (EpiPen 2-Vic) loperamide 2 mg tablet (Imodium 2 mg PO Q4H PRN loose stool #60 06/04/20 A-D) tabs budesonide 9 mg tablet,delayed and 9 mg PO DAILY #60 tabs 06/25/22 extended release budesonide 6 mg capsule,extended 6 mg PO DAILY #90 caps 08/29/22 release lisinopril 5 mg tablet 5 mg PO DAILY #90 tabs 08/29/22 metoprolol succinate 25 mg 25 mg PO DAILY #60 tabs 12/29/22 tablet,extended release 24 hr Allergies Allergy/AdvReac Type Severity Reaction Status Date / Time bee venom protein (honey bee) Allergy Unknown 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 Verified 12/29/22 12:02 lisinopril AdvReac Intermediate Other (See Uncoded 12/29/22 12:02 Comment) General Stated Complaint: Arrhythmia DULCE: 2 Review of Systems Narrative: see HPI PFSH All Active Problems (Updated 12/29/22 @ 15:28 by Karin Mccartney MD) Tachycardia (Acute) Atrial tachycardia (Acute) Lesion of skin of nose (Acute) left side Hypertension (Chronic) Hydroureter (Acute) Diarrhea (Acute) 07/2020- microscopic colitis- seeing [facility] GI Neck strain (Chronic) stretching helps Obstructive sleep apnea syndrome (Chronic 07/30/16) Medical History COVID-19 06/26/21 Sensation of foreign body in throat Elevated TSH Normal T4 Lateral epicondylitis of left elbow Abdominal cramping Bursitis of right shoulder (08/16/15) Left lumbar radiculopathy (05/04/15) Lichen simplex chronicus Localized pruritus (07/09/17) hands and dorsum of feet Plantar fasciitis, bilateral (08/16/15) Pruritus ani Trigeminal neuralgia Trigger finger, right middle finger (12/21/14) Surgical History Status post vasectomy Vasectomy Family History Mother , 87 Pulmonary embolism Parkinsons Father , 99 Colon cancer Sister No problems noted. Brother Hyperlipidemia Maternal Grandfather TB (tuberculosis) Paternal Grandfather No problems noted. Maternal Grandmother No problems noted. Paternal Grandmother No problems noted. Sister No problems noted. Sister No problems noted. Brother Hypertension Son No problems noted. Daughter No problems noted. Daughter No problems noted. Social History Smoking/Tobacco Use Status: Never Second Hand Exposure: No Smoking risk assessment performed?: Yes Alcohol Intake: current Alcohol Intake frequency: a few times a month Alcohol type: beer Drug use: Never Substance use type: does not use Caregiver/Support person: Yes Household members: spouse Housing: house Communication Needs: None Do you need help understanding health information?: Never Pets and animals: Yes Pets and animals: dog(s) Sexually active: Yes Do you think of yourself as: straight/heterosexual Current gender identity: male What is your relationship status?: How often do you talk on the phone with friends or family?: twice per week How often do you get together with friends or relatives?: once per week How often do you attend catholic or adventism services?: 1-3 times per year Do you belong to any clubs or organized social groups?: no Panel score (0-1 are the most socially isolated patients): 2 What type of physical activity do you participate in: walking Duration: 60-90 minutes/day Frequency: 5-6 times per week Veronika/Religious: No preference Special veronika needs: No Seatbelt use: always Helmet use: Yes Helmet use: always Drive intox or ride w/intox 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 Head: Normocephalic, atraumatic Neck: Trachea midline, Neck supple. Cardiac: RRR, no murmurs appreciated Resp: No respiratory distress. CTAB. Abd: Soft, non-distended, nontender : No suprapubic tenderness. Extremities: No deformities. No peripheral edema. Neurologic: GCS 15. Moves all extremities freely against gravity Course Vital Signs Vital signs: Vital Signs Pulse 88 12/29/22 11:04 Respiratory Rate 18 12/29/22 11:04 Blood Pressure 139/83 12/29/22 11:04 Pulse Oximetry 98 12/29/22 11:04 Pulse 88 12/29/22 11:04 Respiratory Rate 18 12/29/22 11:04 Blood Pressure 139/83 12/29/22 11:04 Pulse Oximetry 98 12/29/22 11:04 Oxygen Delivery Method Room Air 12/29/22 11:04 Oxygen Flow Rate 0 12/29/22 11:04 Pain Level 0 12/29/22 11:04
[2022-12-29 11:24] LABS: Abs Immature Grans 0.03 10^3/uL (0.0-0.06); Absolute Basophil Count 0.02 10^3/uL (0.0-0.2); Absolute Eosinophil Count 0.03 10^3/uL (0.0-0.7); Absolute Lymphocyte Count 0.65 10^3/uL (1.2-3.4); Absolute Monocyte Count 0.48 10^3/uL (0.1-0.8); Absolute Neutrophil Count 3.53 10^3/uL (1.2-6.7); Basophils % 0.4; Eosinophils % 0.6; HCT 43.7 % (40.0-50.0); HGB 14.6 g/dL (13.5-17.5); Immature Grans % 0.6; Lymphocytes % 13.7; MCH 30.1 pg (27.0-33.0); MCHC 33.4 % (32.0-36.0); MCV 90 fL (80-95); MPV 8.5 fL (8.0-11.0); Monocytes % 10.1; Neutrophils % 74.6; Platelet Count 226 10^3/uL (130-400); RBC 4.85 10^6/uL (4.36-5.78); RDW 11.5 % (11.8-14.1); WBC 4.74 10^3/uL (4.4-10.8)
[2022-12-29 11:51] LABS: ALT 24 U/L (16-63); AST 15 U/L (15-37); Albumin 3.4 g/dL (3.4-5.0); Alkaline Phosphatase 60 U/L (46-116); BUN 16 mg/dL (7-18); Bilirubin, Total 0.4 mg/dL (0.2-1.0); CREATININE 1.2 mg/dL (0.70-1.30); Calcium 9.4 mg/dL (8.5-10.1); Chloride 105 mmol/L (98-107); Estimated GFR 65.46 (mL/min/1.73m2); Glucose 103 mg/dL (74-106); Magnesium 2.4 mg/dL (1.8-2.4); Potassium 4.3 mmol/L (3.5-5.1); Sodium 141 mmol/L (136-145); TSH (W/Ref FT4) 3.79 uIU/mL (0.36-3.74); Total Protein 7.6 g/dL (6.4-8.2); Troponin I < 50 ng/L (<or=60)
[2022-12-29 12:03] LABS: D-Dimer 803 ng/mlFEU (<500)
[2022-12-29 12:13] LABS: FREE T4 0.95 ng/dL (0.76-1.46)
--- NOTE | 2022-12-29 12:30 | DI.CT_ITS ---
Exam(s) CT CHEST PE CTA EXAM: CT CHEST PE CTA CLINICAL HISTORY: tachycardia, elevated dimer. TECHNIQUE: Imaging Protocol: Axial CT angiography was performed with multi-slice acquisition and mu lti-planar reconstructions as well as axial, coronal and sagittal MIP reconstructions. CONTRAST MATERIAL: Intravenous: Omnipaque 350 Contrast volume:100 ml COMPARISON: CT CT RENAL COLIC WO from 12/11/2019 FINDINGS: Pulmonary Arteries: No evidence of filling defect to suggest pulmonary emboli. Tracheobronchial tree: Patent where visualized. Mediastinum and Mary: No dominant adenopathy or fluid collection. Pulmonary parenchyma: Dependent changes. No consolidation or dominant measurable mass. Pleura: No effusion or pneumothorax. Heart: The heart is not dilated. Mild coronary artery calcifications are seen. Tiny pericardial effus ion. Aorta: Thoracic aorta non-dilated. No aneurysm. No dissection. Upper abdomen: Unremarkable. Bones: Unremarkable for age. Tubes, Catheters, and Lines: None IMPRESSION: No evidence of pulmonary embolism. A tiny pericardial effusion. RADIATION DOSE DELIVERED: Total DLP DATA REPOSITORY: All CT scans at this facility are submitted to the National Radiology Data Registry (NRDR) Dose Index Registry (DIR) with the [employer] (ACR). RADIATION OPTIMIZATION: All CT scans at this facility use at least one of these dose optimization te chniques: automated exposure control; mA and/or kV adjustment per patient size (includes targeted exa ms where dose is matched to clinical indication); or iterative reconstruction.
[2022-12-29 14:25] LABS: Troponin I < 50 ng/L (<or=60)
[2022-12-29] MEDS: Normal Saline - Diluent 50 ML VIAL IJ (14:28)
[2022-12-29] MEDS: Omnipaque 350 MG/ML 100 ML BTL IJ (14:29)
[2022-12-29] MEDS: Normal Saline Flush 10 ML SYR IVP (14:30)
== END 2022-12-29 16:05 | disposition home or self-care (01) ==
PROVIDERS: Emergency Provider Student in an Organized Health Care Education/Training Program; PCP Nurse Practitioner Family
DX: R00.0 Tachycardia, unspecified (principal); R79.1 Abnormal coagulation profile; Z79.82 Long term (current) use of aspirin
CPT/HCPCS: 71275; 80053; 93005; 99285; 83735; 84439; 84443; 84484; 85025; 85379; 93010; 99284; J3490

== ENCOUNTER 2022-12-30 21:40 | Emergency (ER) | payer BC, SELFPAY ==
[2022-12-30] VITALS (11 sets, daily range): BP systolic 83–116; BP diastolic 54–89; PULSE 77–156; RESP 16–26; TEMP 36.8; O2SAT 97–99
--- NOTE | 2022-12-30 21:30 | RT.EKG_ITS ---
APPROVED REPORT Exam: Resting ECG Reason for Exam: tachy Patient Location: E HR:153 bpm ECG Measurements Heart Rate [address] [id number] P [id number] QRSd 130 QRS -30 QT 341 T 250 QTc 545 Conclusion Wide-QRS tachycardia...V-rate>(220-age), QRSd>120 Nonspecific intraventricular conduction delay...QRSd >115mS, not LBBB/RBBB
--- NOTE | 2022-12-30 21:45 | RT.EKG_ITS ---
APPROVED REPORT Exam: Resting ECG Reason for Exam: tachycardia Patient Location: E HR:77 bpm ECG Measurements Heart Rate 77 AXIS RI [id number] P [id number] QRSd 102 QRS 2 QT 510 T 269 QTc 589 Conclusion Atrial flutter with predominant 4:1 AV block...A-rate 312, multiple Ps ST elevation secondary to atrial flutter Nonspecific T abnormalities, lateral leads...T <-0.10mV, I aVL V5 V6 Prolonged QT interval...QTc >500mS
[2022-12-30] MEDS: dilTIAZem 25 MG/5 ML VIAL 20 MG IVP (21:54)
--- NOTE | 2022-12-30 21:58 | W.ED.GENAD ---
Discharge Plan Disposition Patient Disposition: Home Discharge Details Clinical Impression: Atrial flutter Primary Care Provider: Jose Wayne ED Provider: Farshad Amador Home Meds and New Rx's Prescriptions: New apixaban 5 mg (74 tabs) tablets,dose pack See Rx Instructions .ROUTE .COMPLEX Qty: 74 0RF Rx Instructions: orally per package directions diltiazem HCl 120 mg capsule,extended release 24hr 120 mg PO DAILY Qty: 30 0RF Continued rosuvastatin 5 mg tablet 5 mg PO DAILY budesonide 6 mg capsule, extended release 6 mg PO DAILY Qty: 30 0RF Rx Instructions: plan is to taper to 3 mg after this next month losartan 25 mg tablet 25 mg PO DAILY Qty: 90 0RF aspirin 81 mg tablet,delayed release (DR/EC) 81 mg PO DAILY Qty: 90 3RF loperamide [Imodium A-D] 2 mg tablet 2 mg PO Q4H PRN (Reason: loose stool) Qty: 60 0RF Rx Instructions: administer after each loose stool until symptoms controlled; do not exceed 8 mg per 24 hrs budesonide 9 mg tablet,delayed and ext.release 9 mg PO DAILY Qty: 60 0RF Rx Instructions: 1 tab po qd x 8 weeks metoprolol succinate 25 mg tablet extended release 24 hr 25 mg PO DAILY Qty: 60 0RF Discharge Instructions Instructions: Atrial Flutter (DC) Additional Instructions: You were seen in the emergency department for high heart rate. We gave you a medication called diltiazem to slow your heart rate down. This improved your heart rate. Your EKG after doing this was showing something called atrial flutter. We gave you some oral diltiazem to take in addition to your metoprolol to help control your high heart rates. We started you on a blood thinner called Eliquis. If you have any head injuries you need to return to the emergency department while on the blood thinner or if you have any major bleeding. Return to the emergency department if you develop high heart rate again. Follow-up with cardiology to discuss options to control your heart rhythm. Follow-up with your primary care doctor additionally as they can help manage from your medications. Return to the emergency department if you have any other concerns. Referrals: Jose Wayne NP [Primary Care Provider] - 1 week Lesli Ken MD [ [facility]] - 1 week Medical Decision Making 67-year-old male history of hypertension, hyperlipidemia, colitis, is now presenting with fast heart rate. Looks like previously was thought he was in SVT. Improved with denied the scene. He arrived here with heart rates in the 150s. I gave him 20 mg of diltiazem IV and his heart rate dramatically improved but repeat EKG is showing that he is in atrial flutter. He had extensive work-up for tachycardia in his last visits including EKGs, broad labs, and a CT PE that was all unremarkable. I suspect that this is a primary atrial tachycardia and unlikely secondary to another source. We will start him on diltiazem. His [id number] score is 2 and will start him on Eliquis. We will give him referral to cardiology. We will send repeat labs now but if they are unremarkable we will start on Eliquis and diltiazem and have him follow-up with cardiology. He has had symptoms for 1 week which is a contraindication for me to perform elective electrical cardioversion for his atrial flutter here. 1041pm Labs unremarkable. Still with a normal heart rate. Symptom-free. We will give him referral to cardiology and start him on diltiazem and Eliquis. Will discharge with return precautions. Medical Records Medical records reviewed: Yes I reviewed the patient's medical records. Lab Data Lab results reviewed: Yes I reviewed the patient's lab results. Labs: Labs grossly unremarkable ECG Data Attestation: I personally reviewed and interpreted this ECG (s) as follows: Prior ECG tracings: available for review Interpretation: Initial EKG was showing a narrow complex rapid tachycardia. After diltiazem and normal rate and showing atrial flutter. Previous EKG is unremarkable in comparison. No ST or T wave changes. Otherwise unremarkable EKGs. HPI General Mode of arrival: ambulatory. Date/Time Provider Initiated Documentation: 12/30/22 21:48. Limitations to Documentation: no limitations. Information obtained by: patient and family. HPI Narrative: 67-year-old male history of hypertension, hyperlipidemia, colitis, multiple visits for fast heart rate now presents again for fast heart rate. Visited 10 days ago and yesterday for high heart rate. Appears to be in a regular fast rhythm and given adenosine with break of his abnormal rhythm. Appears to be in sinus rhythm after this. He has been intermittently having symptoms. It was worse today and they had started him on metoprolol 25 mg. He was having feelings of palpitations and shortness of breath and came in again because he can tell his heart rate was high. He denies chest pain or other symptoms presently. Related Data Home Medications Medication Instructions Recorded Confirmed loperamide 2 mg tablet (Imodium 2 mg PO Q4H PRN loose stool #60 06/04/20 12/30/22 A-D) tabs rosuvastatin 5 mg tablet 5 mg PO DAILY 01/28/22 12/30/22 budesonide 9 mg tablet,delayed and 9 mg PO DAILY #60 tabs 06/25/22 12/30/22 extended release metoprolol succinate 25 mg 25 mg PO DAILY #60 tabs 12/29/22 12/30/22 tablet,extended release 24 hr apixaban 5 mg (74 tabs) tablets in See Rx Instructions PO .COMPLEX 12/30/22 a dose pack #74 dose pk aspirin 81 mg tablet,delayed 81 mg PO DAILY #90 tabs 12/30/22 12/30/22 release budesonide 6 mg capsule,extended 6 mg PO DAILY #30 caps 12/30/22 12/30/22 release diltiazem HCl 120 mg 120 mg PO DAILY #30 caps 12/30/22 capsule,extended release 24 hr losartan 25 mg tablet 25 mg PO DAILY #90 tabs 12/30/22 12/30/22 Previous Rx's Medication Instructions Recorded loperamide 2 mg tablet (Imodium 2 mg PO Q4H PRN loose stool #60 06/04/20 A-D) tabs budesonide 9 mg tablet,delayed and 9 mg PO DAILY #60 tabs 06/25/22 extended release metoprolol succinate 25 mg 25 mg PO DAILY #60 tabs 12/29/22 tablet,extended release 24 hr apixaban 5 mg (74 tabs) tablets in See Rx Instructions PO .COMPLEX 12/30/22 a dose pack #74 dose pk aspirin 81 mg tablet,delayed 81 mg PO DAILY #90 tabs 12/30/22 release budesonide 6 mg capsule,extended 6 mg PO DAILY #30 caps 12/30/22 release diltiazem HCl 120 mg 120 mg PO DAILY #30 caps 12/30/22 capsule,extended release 24 hr losartan 25 mg tablet 25 mg PO DAILY #90 tabs 12/30/22 Allergies Allergy/AdvReac Type Severity Reaction Status Date / Time bee venom protein (honey bee) Allergy Unknown Track Service Person Verified 12/29/22 12:02 General Stated Complaint: Arrhythmia DULCE: 1 Review of Systems Constitutional Constitutional: Denies chills, Denies fever(s) and Denies headache(s) Eyes Eyes: Denies change in vision ENT Ears, Nose, Mouth, and Throat: Denies headache(s) and Denies odynophagia Cardiovascular Cardiovascular: Denies chest pain, Reports rapid heart rate and Reports dyspnea Respiratory Respiratory: Reports dyspnea Gastrointestinal Gastrointestinal: Denies abdominal pain, Denies diarrhea, Denies nausea, Denies odynophagia and Denies vomiting Genitourinary Genitourinary: Denies dysuria Musculoskeletal Musculoskeletal: Denies myalgias Integumentary/Breasts Skin/Breast: Denies changing lesions Neurologic Neurologic: Denies behavioral changes and Denies headache(s) Psychiatric Psychiatric: Denies behavioral changes Endocrine Endocrine: Denies heat intolerance Hematologic/Lymphatic Hematologic/Lymphatic: Denies lymphadenopathy PFSH All Active Problems (Updated 12/30/22 @ 22:42 by Farshad Amador MD) Atrial flutter (Acute) Persistent dry cough (Acute) Tachycardia (Acute) Atrial tachycardia (Acute) Lesion of skin of nose (Acute) left side Hypertension (Chronic) Hydroureter (Acute) Diarrhea (Acute) 07/2020- microscopic colitis- seeing [facility] [place] [facility] Neck strain (Chronic) stretching helps Obstructive sleep apnea syndrome (Chronic 07/30/16) Medical History COVID-19 06/26/21 Sensation of foreign body in throat Elevated TSH Normal T4 Lateral epicondylitis of left elbow Abdominal cramping Bursitis of right shoulder (08/16/15) Left lumbar radiculopathy (05/04/15) Lichen simplex chronicus Localized pruritus (07/09/17) hands and dorsum of feet Plantar fasciitis, bilateral (08/16/15) Pruritus ani Trigeminal neuralgia Trigger finger, right middle finger (12/21/14) Surgical History Status post vasectomy Vasectomy Family History Mother , 87 Pulmonary embolism Parkinsons Father , 99 Colon cancer Sister No problems noted. Brother Hyperlipidemia Maternal Grandfather TB (tuberculosis) Paternal Grandfather No problems noted. Maternal Grandmother No problems noted. Paternal Grandmother No problems noted. Sister No problems noted. Sister No problems noted. Brother Hypertension Son No problems noted. Daughter No problems noted. Daughter No problems noted. Social History Smoking/Tobacco Use Status: Never Second Hand Exposure: No Smoking risk assessment performed?: Yes Alcohol Intake: current Alcohol Intake frequency: a few times a month Alcohol type: beer Drug use: Never Substance use type: does not use Caregiver/Support person: Yes Household members: spouse Housing: house Communication Needs: None Do you need help understanding health information?: Never Pets and animals: Yes Pets and animals: dog(s) Sexually active: Yes Do you think of yourself as: straight/heterosexual Current gender identity: male What is your relationship status?: How often do you talk on the phone with friends or family?: twice per week How often do you get together with friends or relatives?: once per week How often do you attend spiritism or anglican services?: 1-3 times per year Do you belong to any clubs or organized social groups?: no Panel score (0-1 are the most socially isolated patients): 2 What type of physical activity do you participate in: walking Duration: 60-90 minutes/day Frequency: 5-6 times per week Veronika/Synagogue: No preference Special veronika needs: No Seatbelt use: always Helmet use: Yes Helmet use: always Drive intox or ride w/intox school bus driver/teacher assistant: No Do you feel safe at home: Yes Do you feel safe in your relationship?: Yes Exam Const General: cooperative Nutritional Appearance: average body habitus Orientation: alert, awake and oriented x3 HENMT Head: normal to inspection Ears: external ears normal Mouth: moist mucous membranes Eyes Pupils: PERRL EOM: EOM intact bilaterally and No nystagmus Neck Neck: full ROM and no tracheal deviation Chest Chest: normal inspection of the chest Resp Auscultation: clear to auscultation bilaterally Cardio Rate: tachycardic GI Inspection: normal to inspection Palpation: soft, no guarding, not rigid and nontender Back/Spine/Pelvis Back: No no CVA tenderness Thoracic/Lumbar Spine: thoracic and lumbar spine normal to inspection Skin General skin exam: no rashes or lesions noted Neuro General: patient alert, patient awake and patient oriented x3 Cranial Nerves: CN's II-XI intact bilaterally, PERRL and no nystagmus Cognition: normal cognition Motor: muscle tone normal throughout and strength 5/5 throughout Sensory Exam: no sensory deficits noted Extrem General: normal to inspection Course Vital Signs Vital signs: Vital Signs Temperature 36.8 C 12/30/22 21:54 Pulse 156 H 12/30/22 21:54 Respiratory Rate 18 12/30/22 21:54 Blood Pressure 116/89 12/30/22 21:54 Pulse Oximetry 99 12/30/22 21:54 Temperature 36.8 C 12/30/22 21:54 Temperature Source Temporal Artery Scan 12/30/22 21:54 Pulse 156 H 12/30/22 21:54 Respiratory Rate 18 12/30/22 21:54 Respiratory Effort Normal 12/30/22 21:56 Blood Pressure 116/89 12/30/22 21:54 Pulse Oximetry 99 12/30/22 21:54 Oxygen Delivery Method Room Air 12/30/22 21:54 Oxygen Flow Rate 0 12/30/22 21:54 Pain Level 0 12/30/22 21:54 Critical Care Time Critical Care Time Critical Care Time: Yes Total Critical Care Time: 30 Attestation: Farshad Mg, performed 30 minutes of critical care time exclusive of procedure time and documentation.
[2022-12-30 22:02] LABS: Abs Immature Grans 0.06 10^3/uL (0.0-0.06); Absolute Basophil Count 0.03 10^3/uL (0.0-0.2); Absolute Eosinophil Count 0.04 10^3/uL (0.0-0.7); Absolute Lymphocyte Count 0.61 10^3/uL (1.2-3.4); Absolute Monocyte Count 0.94 10^3/uL (0.1-0.8); Absolute Neutrophil Count 7.63 10^3/uL (1.2-6.7); Basophils % 0.3; Eosinophils % 0.4; HCT 44.6 % (40.0-50.0); HGB 14.7 g/dL (13.5-17.5); Immature Grans % 0.6; Lymphocytes % 6.6; MCH 30.1 pg (27.0-33.0); MCV 91 fL (80-95); MPV 8.6 fL (8.0-11.0); Monocytes % 10.1; Platelet Count 270 10^3/uL (130-400); RBC 4.89 10^6/uL (4.36-5.78); RDW 11.7 % (11.8-14.1); RDW-SD 38.9 fL; WBC 9.31 10^3/uL (4.4-10.8)
--- NOTE | 2022-12-30 22:14 | NUR.NOTE ---
Referral faxed to [facility] Cardiology to f/u in 1 week for A-Flutter.Nursing Note:
[2022-12-30 22:23] LABS: ALT 26 U/L (16-63); AST 19 U/L (15-37); Albumin 3.5 g/dL (3.4-5.0); Alkaline Phosphatase 66 U/L (46-116); Anion Gap 6.9 mmol/L (3-11); BUN 21 mg/dL (7-18); Bilirubin, Total 0.4 mg/dL (0.2-1.0); CO2 31.1 mmol/L (21.0-32.0); CREATININE 1.3 mg/dL (0.70-1.30); Calcium 9.7 mg/dL (8.5-10.1); Chloride 103 mmol/L (98-107); Estimated GFR 59.47 (mL/min/1.73m2); Glucose 115 mg/dL (74-106); Magnesium 2.2 mg/dL (1.8-2.4); Potassium 4.4 mmol/L (3.5-5.1); Sodium 141 mmol/L (136-145); Total Protein 7.9 g/dL (6.4-8.2); Troponin I < 50 ng/L (<or=60)
[2022-12-30 22:24] LABS: PHOSPHORUS 3.5 mg/dL (2.6-4.7)
[2022-12-30] MEDS: dilTIAZem 60 MG TAB PO (22:29)
[2022-12-30] MEDS: Apixaban 5 MG TAB 10 MG PO (22:57)
== END 2022-12-30 22:58 | disposition home or self-care (01) ==
PROVIDERS: Emergency Provider Student in an Organized Health Care Education/Training Program; PCP Nurse Practitioner Family
DX: I48.92 Unspecified atrial flutter; I10 Essential (primary) hypertension; Z91.030 Bee allergy status; Z79.899 Other long term (current) drug therapy; Z79.01 Long term (current) use of anticoagulants; E78.5 Hyperlipidemia, unspecified
CPT/HCPCS: 80053; 93005; 96374; 99291; 83735; 84100; 84484; 85025; 93010

== ENCOUNTER 2024-02-08 16:28 | Outpatient (REF) | payer BC, SELFPAY | END 2024-02-08 16:29 | disposition home or self-care (01) | LOC: LBN 16:28 | PROVIDERS: PCP Nurse Practitioner Family; Visit Provider Nurse Practitioner Family | DX: L60.8 Other nail disorders (principal); E78.5 Hyperlipidemia, unspecified; M21.962 Unspecified acquired deformity of left lower leg | CPT/HCPCS: 87101; 87206 ==

== ENCOUNTER 2024-04-25 11:41 | Outpatient (CLI) | payer OTHER, SELFPAY ==
[2024-04-25 09:09] LABS: ALT 27 U/L (16-63); AST 21 U/L (15-37); Albumin 3.9 g/dL (3.4-5.0); Alkaline Phosphatase 80 U/L (46-116); Anion Gap 6.4 mmol/L (3-11); BUN 20 mg/dL (7-18); Bilirubin, Total 0.5 mg/dL (0.2-1.0); CO2 31.6 mmol/L (21.0-32.0); CREATININE 1.1 mg/dL (0.70-1.30); Calcium 9.4 mg/dL (8.5-10.1); Chloride 108 mmol/L (98-107); Cholesterol 150 mg/dL (<200); Estimated GFR 72.22 (mL/min/1.73m2); Glucose 105 mg/dL (74-106); HDL Cholesterol 79 mg/dL (>or=40); Potassium 4.6 mmol/L (3.5-5.1); Sodium 146 mmol/L (136-145); Total Protein 7.5 g/dL (6.4-8.2); Triglyceride <25 mg/dL (<150)
[2024-04-25 09:22] LABS: LDL CHOLESTEROL 68 mg/dL (<100)
== END 2024-04-25 11:42 | disposition home or self-care (01) ==
LOC: LBO 11:42
PROVIDERS: PCP Nurse Practitioner Family; Visit Provider Nurse Practitioner Family
DX: E78.5 Hyperlipidemia, unspecified (principal)
CPT/HCPCS: 36415; 80053; 80061; 83721

== ENCOUNTER 2024-07-28 10:22 | Outpatient (CLI) | payer OTHER, SELFPAY ==
--- NOTE | 2024-07-28 | DI.RAD_ITS ---
Exam(s) XR SHOULDER LT COMPLETE 2+V EXAM: XR SHOULDER LT COMPLETE 2+V CLINICAL HISTORY: M25.512 Pain in LT shoulder, acute pain. TECHNIQUE: 2D digital imaging was performed. COMPARISON: No exams were available for comparison FINDINGS: Four views No evidence of fracture or dislocation or abnormal soft tissue calcifications. The subacromial space is not diminished. There are mild degenerative changes in the AC joint. No obvious degenerative changes in the glenohumeral joint. Bone density normal. No osseous lesions. IMPRESSION: No significant radiographic findings in the left shoulder. Mild degenerative changes in the acromioclavicular joint noted. DATA REPOSITORY: RADIATION DOSE DELIVERED:
== END 2024-07-28 10:42 ==
PROVIDERS: PCP Nurse Practitioner Family; Visit Provider Physician Assistant Medical
DX: M25.512 Pain in left shoulder (principal)
CPT/HCPCS: 73030

== ENCOUNTER 2024-10-28 03:51 | Outpatient (CLI) | payer OTHER, SELFPAY ==
--- NOTE | 2024-10-28 06:30 | DI.MRI_ITS ---
Exam(s) MR UPPER JOINT LT WO EXAM: MR UPPER JOINT LT WO CLINICAL HISTORY: ? RTC TEAR, lt shoulder pain, lt rotator cuff tear,m75.102,m25.512. TECHNIQUE: Multiplanar multisequence MRI was performed. COMPARISON: None. FINDINGS: BONES: There is no fracture or contusion pattern. JOINTS:The acromioclavicular joint shows mild spurring. The glenohumeral joint is normal. TENDONS: Supraspinatus: There is a full-thickness tear of the supraspinatus tendon with retraction nearly to the level of the AC joint. Infraspinatus: Mild tendinosis. Subscapularis: Unremarkable. Teres Minor: Unremarkable. Biceps and [place]: Unremarkable. MUSCLES: Unremarkable. GLENOID LABRUM: Unremarkable on this noncontrast examination. SOFT TISSUES: Unremarkable. BURSAE: Subacromial and subdeltoid bursae shows a small amount of fluid. There is a small amount of fluid in the subcoracoid bursa. . IMPRESSION: Full-thickness tear with retraction of the supraspinatus tendon. Mild infraspinatus tendinosis. Mild degenerative changes of the AC joint. DATA REPOSITORY:
== END 2024-10-28 04:11 ==
LOC: DI 03:51
PROVIDERS: PCP Nurse Practitioner Family; Visit Provider Student in an Organized Health Care Education/Training Program
DX: M25.512 Pain in left shoulder (principal); M75.102 Unspecified rotator cuff tear or rupture of left shoulder, not specified as traumatic; M67.812 Other specified disorders of synovium, left shoulder; M75.32 Calcific tendinitis of left shoulder
CPT/HCPCS: 73221